=== PATIENT | female | born 1995 | race Caucasian/White ===

== ENCOUNTER 2016-05-27 23:20 | Emergency (ER) | payer OTHER ==
[2016-05-27 23:43] VITALS: RESP 18; TEMP 98
[2016-05-28 00:14] VITALS: BP 129/62; PULSE 58; O2SAT 100
== END 2016-05-28 00:14 | disposition home or self-care (01) ==
LOC: ED 23:20
DX: O36.8130 Decreased fetal movements, third trimester, not applicable or unspecified (principal); O24.419 Gestational diabetes mellitus in pregnancy, unspecified control; Z3A.36 36 weeks gestation of pregnancy
CPT/HCPCS: 59025; 99283; 99284